=== PATIENT | female | born 1965 | race Caucasian/White ===

== ENCOUNTER → 2017-07-01 | Outpatient (CLI) | payer BC ==
[~2017-07-01] MED LIST: BIRTHCONTROL; CLINDAMYCIN150 MG PO; DOXYCYCLINE 10100 MG PO; FLONASE NASAL S16 GM NS; NORCO 325 MG-51 TAB; PREDNISONE20 MG PO; SINGULAIR 110 MG/TAB PO; VENTOLIN0.09 MG IH; ZITHROMAX Z PA250 MG PO; ZYRTEC 10MG10 MG PO
== END ==
LOC: MC.RAD 08:40
DX: Z12.31 Encounter for screening mammogram for malignant neoplasm of breast (principal)

== ENCOUNTER → 2017-12-03 | Outpatient (CLI) | payer BC | LOC: MC.RAD 07:00 | DX: N63.12 Unspecified lump in the right breast, upper inner quadrant (principal); N64.4 Mastodynia ==

== ENCOUNTER → 2018-07-02 | Outpatient (CLI) | payer BC | LOC: MC.RAD 16:00 | DX: Z12.31 Encounter for screening mammogram for malignant neoplasm of breast (principal) ==

== ENCOUNTER → 2019-07-07 | Outpatient (CLI) | payer BC | LOC: MC.RAD 10:03 | DX: Z12.31 Encounter for screening mammogram for malignant neoplasm of breast (principal) ==

== ENCOUNTER 2019-12-02 08:00 | Outpatient (RCR) | payer BC | END 2019-12-29 | disposition home or self-care (01) | LOC: WSPT | DX: M25.562 Pain in left knee (principal) ==

== ENCOUNTER → 2020-08-17 | Outpatient (CLI) | payer BC | LOC: MC.RAD 07-27 16:15 | DX: Z12.31 Encounter for screening mammogram for malignant neoplasm of breast (principal); N64.89 Other specified disorders of breast ==

== ENCOUNTER → 2020-08-22 | Outpatient (CLI) | payer BC | LOC: MC.RAD 14:53 | DX: N64.89 Other specified disorders of breast (principal) ==